=== PATIENT | female | born 1965 | race Caucasian/White ===

== ENCOUNTER → 2018-06-04 13:25 | Outpatient (REF) | payer MEDICAID, SELFPAY ==
[2018-06-07 15:25] LABS: Chlamydia Result Negative; GC Result Negative; Specimen Description CERVIX
== END ==
LOC: LBN 13:25
PROVIDERS: PCP Nurse Practitioner Family; Visit Provider Nurse Practitioner Women's Health
DX: Z11.3 Encounter for screening for infections with a predominantly sexual mode of transmission (principal)
CPT/HCPCS: 87491; 87591

== ENCOUNTER → 2018-06-15 01:30 | Outpatient (CLI) | payer MEDICAID, SELFPAY ==
--- NOTE | 2018-06-15 09:03 | DI.REPORT_ITS ---
SYMPTOMS/DIAGNOSIS: LT BREAST MASS, N63.20, NIPPLE DISCHARGE, N64.52, PAIN, N64.4, LUMPECTOMY LT, 1 CM MASS AT LT EDGE OF SCAR MAMMOGRAM AND LEFT BREAST ULTRASOUND: Mammograms were interpreted according to the usual protocol including computer analysis with CAD system, tomosynthesis and C view imaging. Comparison with prior examinations. Breast density B. Since the prior examination the patient is status post left lumpectomy in the upper outer quadrant. No suspicious microcalcifications or masses are seen in the breasts. The skin and axilla are unremarkable. A left breast ultrasound was performed in the area of palpable concern. The area corresponds to the lumpectomy site in the upper outer quadrant. No definite discrete mass is seen sonographically. IMPRESSION: No definite evidence for malignancy. A follow up left mammogram and ultrasound are requested in 6 months for re-evaluation. Category 3. The findings were discussed with the patient on the date of the examination. MQSA ASSESSMENT OF FINDINGS: Probably benign. Six month follow-up recommended. Category 3. Patient will receive a letter notifying them of these results. BI-RADS category B. There are scattered areas of fibroglandular density.
== END ==
PROVIDERS: PCP Nurse Practitioner Family; Visit Provider Nurse Practitioner Women's Health
DX: N63.20 Unspecified lump in the left breast, unspecified quadrant (principal); N64.4 Mastodynia; N64.52 Nipple discharge; N64.59 Other signs and symptoms in breast
CPT/HCPCS: 76642; 77062; 77066; G0279

== ENCOUNTER 2018-10-07 12:49 | Outpatient (REF) | payer MEDICAID, SELFPAY ==
[2018-10-11 16:26] LABS: Chlamydia Result Negative; GC Result Negative; Specimen Description CERVIX
== END 2018-10-07 13:09 ==
LOC: NCHCN 12:49
PROVIDERS: PCP Nurse Practitioner; Visit Provider Nurse Practitioner
DX: N39.0 Urinary tract infection, site not specified (principal); Z11.3 Encounter for screening for infections with a predominantly sexual mode of transmission
CPT/HCPCS: 87077; 87491; 87591; 87086; 87186; 87480; 87510; 87660

== ENCOUNTER 2019-01-22 11:04 | Emergency (ER) | payer MEDICAID, SELFPAY ==
[2019-01-22 11:17] VITALS: BP 172/93; PULSE 109; RESP 18; TEMP 36.5; O2SAT 98
--- NOTE | 2019-01-22 11:40 | ED.GENADUL_ITS ---
Discharge Plan Disposition Patient Disposition: AGAINST MEDICAL ADVICE Condition: Fair Discharge Details Chief Complaint: Urinary Clinical Impression: Exposure to STD, Urinary frequency, Bacterial vaginosis, Tachycardia Primary Care Provider: Brandi Kendrick ED Provider: Sinai Patterson Home Meds and New Rx's Prescriptions: New sulfamethoxazole-trimethoprim [Bactrim DS] 800-160 mg tablet 1 tab PO BID 3 Days Qty: 6 RF: 0 metronidazole [Flagyl] 500 mg tablet 500 mg PO BID 7 Days Qty: 14 RF: 0 Continued ranitidine HCl 75 mg tablet 75 mg PO BID Qty: 60 RF: 3 prazosin 2 mg capsule 2 mg PO TID Qty: 90 RF: 3 prazosin 5 mg capsule 5 mg PO .COMPLEX Qty: 30 RF: 3 quetiapine [Seroquel] 100 mg tablet 100 mg PO 2-3@HS Qty: 90 RF: 5 tramadol 50 mg tablet 50 mg PO 2-3x/d Qty: 30 RF: 0 nicotine (polacrilex) [Nicorette] 2 mg gum 2 mg BC Q2H Qty: 20 RF: 1 epinephrine 0.3 MG/0.3 ML auto-injector 0.3 mg IM ONCE Qty: 1 RF: 1 probiotic,multi vit DAILY RF: 0 estradiol [Vagifem] 10 MCG tablet 10 mcg VG PV HS twice weekly Qty: 24 RF: 4 calcium carbonate 600 MG tablet 600 mg PO BID RF: 0 cholecalciferol (vitamin D3) [Vitamin D3] 400 UNIT capsule 800 unit PO DAILY RF: 0 aspirin [Aspir-81] 81 MG tablet,delayed release (DR/EC) 2 tab PO PRN PRNRF: 0 Spiriva with HandiHaler 18 mcg Capsule, W/Inhalation Device 1 cap INHALATION DAILY RF: 0 Zyrtec 10 mg Capsule 10 mg PO 5XW RF: 0 Discharge Instructions Instructions: Sexually Transmitted Diseases (ED), Urinary Tract Infection in Women (ED) Additional Instructions: Call your primary care doctor on Thursday to schedule follow-up appointment for reevaluation. If your symptoms of urinary frequency do not improve, you may start the antibiotics. Return immediately to the emergency department with any worsening or new concerning symptoms. Discharge Data Discharge Date/Time-TO BE ENTERED AT DEPARTURE: 01/22/19 12:56 Discharge Physician: Sinai Patterson Medical Decision Making 53-year-old female w/ urinary frequency and vaginal itching x 3 days. Recent exposure with partner who tested + for chlamydia. Denies fever, vomiting, abdominal pain, vaginal discharge. BP hypertensive. Remainder of vitals within normal limits. Pt appears nontoxic. Abdomen soft and nontender. Normal external and internal vaginal exam. She has what appears to be mild within normal physiologic white vaginal discharge. She has had a history of hysterectomy. Patient requested cervical cultures rather than giving a dirty urinalysis specimen. Will also check a clean-catch urinalysis to rule out UTI. 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 Will give Bumex 2 g p.o. and gentamicin 240 mg IM. Cultures for gonorrhea chlamydia sent. We will also send a vaginal Path screen. 1210 --urinalysis significantly contaminated and unable to run microscopic exam. Patient would rather not wait and she states she cannot give another sample at this time. We will send home with a prescription for Bactrim if her symptoms of urinary frequency do not improve. 1300 --just prior to patient discharge, she vomited once and her heart rate increased to 140s. She denied any throat swelling or itching or difficulty breathing. Lungs clear to auscultation. She states she had not eaten anything yet today and she is very anxious about being in the emergency department and that is the cause of her tachycardia. She was watched for another 30 minutes and was given a sandwich but her HR is still 140s and she is requesting to leave. Her blood pressure was hypertensive. Her oxygen saturation was 99% on room air. Discussed with patient that due to her history of multiple drug allergies, would recommend to observe her longer to ensure her heart rate improves in case of a serious allergic reaction but she is declining to stay any further. The risks of and disability due to anaphylaxis or another acute serious pathology were explained to patient and she fully understands. AMA form signed. Patient demonstrates capacity to make decisions. Vaginal Pap screen positive for Gardnerella. She was also given a prescription for Flagyl. She is instructed to follow-up with the primary care doctor and return here at any time if worse. Medical Records Medical records reviewed: Yes I reviewed the patient's medical records. Lab Data Lab results reviewed: Yes I reviewed the patient's lab results. 01/22/19 11:40 Vaginal Vaginitis Screen - Pending Laboratory Tests Range/Units 01/22/19 11:35 Urine Color (Yellow) Yellow Urine Clarity Cloudy Urine pH (5-8) 5.5 Ur Specific [place] (1.005-1.025) >= 1.030 H Urine Protein (Negative) mg/dL 30 H Urine Ketones (Negative) mg/dL Trace H Urine Blood (Negative) Negative Urine Nitrite (Negative) Negative Urine Bilirubin (Negative) Small H Urine Urobilinogen (Up TO 0.2) EU/dL 0.2 Ur Leukocyte Esterase (Negative) Negative Urine RBC Not Applicable Urine WBC Not Applicable Ur Epithelial Cells Not Applicable Urine Crystals Not Applicable Urine Bacteria Not Applicable Urine Mucus Not Applicable Ur Culture Indicated? No/sq. contamination Urine Glucose (Negative) mg/dL Negative HPI General Mode of arrival: ambulatory . Date/Time Provider Initiated Documentation: 01/22/19 11:22 . Limitations to Documentation: no limitations . Information obtained by: patient . HPI Narrative: Patient is a 53-year-old female who presents the ED with complaint of urinary frequency and vaginal itching for the past 3 days. She states she recently had unprotected intercourse with her partner 3 months 3 days ago. She states he called her this morning to inform her that he recently tested positive for chlamydia. She denies any fever, nausea, vomiting, vaginal discharge, dysuria, hematuria, urinary urgency, abdominal pain or genital lesions. Related Data Home Medications Medication Instructions Recorded Confirmed epinephrine 0.3 mg IM ONCE #1 ea 09/19/16 01/22/19 Probiotic,Multi Vit DAILY 07/08/17 08/04/18 aspirin [Aspir-81] 2 tab PO PRN PRN 08/03/17 01/22/19 estradiol [Vagifem] 10 mcg VG PV HS twice weekly #24 02/02/18 01/22/19 tab calcium carbonate 600 mg PO BID 06/04/18 01/22/19 cholecalciferol (vitamin D3) 800 unit PO DAILY 06/04/18 01/22/19 [Vitamin D3] nicotine (polacrilex) 2 mg gum 2 mg BC Q2H #20 each 08/13/18 01/22/19 ranitidine 75 mg tablet 75 mg PO BID #60 tab-cap 09/13/18 01/22/19 prazosin 2 mg capsule 2 mg PO TID #90 tab-cap 11/08/18 01/22/19 prazosin 5 mg capsule 5 mg PO .COMPLEX #30 cap 11/08/18 01/22/19 quetiapine 100 mg tablet 100 mg PO 2-3@HS #90 tab 11/08/18 01/22/19 tramadol 50 mg tablet 50 mg PO 2-3x/d #30 tab-cap 11/24/18 01/22/19 Spiriva with HandiHaler 1 cap INHALATION DAILY 01/22/19 01/22/19 Zyrtec 10 mg PO 5XW 01/22/19 01/22/19 metronidazole [Flagyl] 500 mg PO BID 7 Days #14 tab 01/22/19 sulfamethoxazole-trimethoprim 1 tab PO BID 3 Days #6 tab 01/22/19 [Bactrim DS] Previous Rx's Medication Instructions Recorded estradiol [Vagifem] 10 mcg VG PV HS twice weekly #24 02/02/18 tab nicotine (polacrilex) 2 mg gum 2 mg BC Q2H #20 each 08/13/18 ranitidine 75 mg tablet 75 mg PO BID #60 tab-cap 09/13/18 prazosin 2 mg capsule 2 mg PO TID #90 tab-cap 11/08/18 prazosin 5 mg capsule 5 mg PO .COMPLEX #30 cap 11/08/18 quetiapine 100 mg tablet 100 mg PO 2-3@HS #90 tab 11/08/18 tramadol 50 mg tablet 50 mg PO 2-3x/d #30 tab-cap 11/24/18 metronidazole [Flagyl] 500 mg PO BID 7 Days #14 tab 01/22/19 sulfamethoxazole-trimethoprim 1 tab PO BID 3 Days #6 tab 01/22/19 [Bactrim DS] Allergies Allergy/AdvReac Type Severity Reaction Status Date / Time venom-wasp Allergy Intermediate THROAT Unverified 01/22/19 11:22 SWELLING Penicillins Allergy Unknown Anaphylaxsi Unverified 01/22/19 11:22 s codeine AdvReac Intermediate VOMITING Unverified 01/22/19 11:22 lisinopril AdvReac Intermediate COUGH Unverified 01/22/19 11:22 morphine AdvReac Intermediate vomiting Unverified 01/22/19 11:22 sertraline AdvReac Intermediate Light Unverified 01/22/19 11:22 headed, sleep disturbance, nausea YELLOW JACKET VENOM Allergy Severe ANAPHYLAXIS Uncoded 01/22/19 11:22 General Stated Complaint: Urinary MARLENE: 4 Review of Systems Review of Systems All systems reviewed & are unremarkable except as noted in HPI and below Constitutional Reports as per HPI, Denies chills and Denies fever(s) Eyes Denies blurry vision ENT Denies dizziness, Denies sore throat and Denies throat swelling Cardiovascular Denies chest pain and Denies dyspnea Respiratory Denies cough and Denies dyspnea Gastrointestinal Denies abdominal pain, Denies diarrhea and Denies vomiting Genitourinary Denies hematuria, Reports urinary frequency, Denies dysuria, Denies pelvic pain, Denies flank pain, Denies urinary hesitancy, Denies urinary urgency, Denies vag inal discharge and Reports vaginal pruritus Musculoskeletal Denies back pain and Denies numbness Integumentary/Breasts Denies lesions and Denies rash Neurologic Denies dizziness, Denies focal weakness and Denies numbness Allergic/Immunologic Denies throat swelling [facility] Medical History Anxiety Depression Perimenopausal vasomotor symptoms Tobacco use Surgical History Biopsy of breast (12/01/17) Bladder Surgery section Cholecystectomy (~1998) Hysterectomy, Laproscopic (~2009) Ligation of fallopian tube Family History Mother Substance abuse Essential hypertension Depression Stroke Father Essential hypertension Neoplasm Parkinson's disease Brother No problems noted. Grandfather No problems noted. Grandfather Essential hypertension Heart disease Stroke Grandmother Essential hypertension Neoplasm Grandmother No problems noted. Sister No problems noted. Son No problems noted. Daughter No problems noted. Daughter No problems noted. Social History Smoking/Tobacco Use Status: Current every day Tobacco Type: cigarettes Smoking cigarettes per day: 10 Alcohol Intake: current Alcohol Intake frequency: a few times a week Drug use: Occasionally Substance use type: marijuana Do you feel safe at home: Yes Do you feel safe in your relationship?: Yes Exam Const General: cooperative, healthy appearing and no acute distress HENMT Head: normal to inspection Face and sinus: normal facial exam Eyes General: appearance normal, both eyes and all related structures EOM: EOM intact bilaterally Neck Neck: normal visual inspection and No submandibular swelling Lymphatic: no lymphadenopathy noted Chest Chest: normal inspection of the chest and no tenderness Resp Effort & Inspection: normal respiratory effort and able to speak in complete sentences Auscultation: clear to auscultation bilaterally Cardio Rate: regular rate Rhythm: regular rhythm GI Inspection: normal to inspection Palpation: soft, not firm, not rigid and nontender Auscultation: normal bowel sounds External Female Exam: external appearance normal, no tenderness externally, no external swelling and no lesions Speculum Exam - Vagina: normal appearance of the vagina, normal vaginal discharge (thin, white), not erythematous, no swelling and nontender Bimanual Exam- Vagina & Uterus: normal bimanual exam, normal vaginal palpation and uterus absent Skin General skin exam: no rashes or lesions noted Neuro General: alert, awake and oriented x3 Cognition: normal cognition Speech: speech normal Motor: muscle tone normal throughout Sensory Exam: no sensory deficits noted Extrem General: normal to inspection, full ROM and no edema Psych Appearance: grossly normal Mental Status: mental status grossly normal Speech and Movement: speech and movement normal Affect: normal affect Course Vital Signs Temperature 97.7 F 01/22/19 11:17 Pulse 109 H 01/22/19 11:17 Respiratory Rate 18 01/22/19 11:17 Blood Pressure 172/93 H 01/22/19 11:17 Pulse Oximetry 98 01/22/19 11:17 Temperature 97.7 F 01/22/19 11:17 Temperature Source Temporal Artery Scan 01/22/19 11:17 Pulse 109 H 01/22/19 11:17 Respiratory Rate 18 01/22/19 11:17 Respiratory Effort Non-Labored 01/22/19 11:20 Blood Pressure 172/93 H 01/22/19 11:17 Blood Pressure Position Sitting 01/22/19 11:17 Pulse Oximetry 98 01/22/19 11:17 Oxygen Delivery Method Room Air 01/22/19 11:17 Oxygen Flow Rate 0 01/22/19 11:17 Pain Level 0 01/22/19 11:22
[2019-01-22 11:50] LABS: Bilirubin Small (Negative); Blood Negative (Negative); Clarity Cloudy; Glucose Negative (Negative); Ketones Trace mg/dL (Negative); Leukocyte Esterase Negative (Negative); Nitrite Negative (Negative); Specific Gravity >= 1.030 (1.005-1.025); Urobilinogen 0.2 EU/dL (Up TO 0.2); pH 5.5 (5-8)
[2019-01-22] MEDS: Azithromycin 250 MG TAB 2000 MG PO (11:50)
[2019-01-22] MEDS: Gentamicin 80 MG/2 ML VIAL 240 MG IM (11:59)
[2019-01-22 12:04] LABS: C & S Indicated? No/Sq. Contamination
--- NOTE | 2019-01-22 12:27 | NUR.NOTE ---
Nursing Note: 1220---vomited--states is hungry--did already have crackers after pills--denies itching/weakness/lungs clear--bp 188/108--pulse 136-144--sao2 98%--Dr Patterson notified and examed pt--lunch ordered.
[2019-01-22 12:29] VITALS: BP 188/108; PULSE 144; RESP 18; O2SAT 98
[2019-01-22 12:45] VITALS: BP 161/100; PULSE 133; RESP 18; TEMP 36.8; O2SAT 99
[2019-01-22 12:56] VITALS: BP 161/100; PULSE 133; RESP 18; TEMP 36.8; O2SAT 99
--- NOTE | 2019-01-24 10:04 | PDOC.ERCMPRO ---
Care Management Progress Note 01/24-Rhonda was seen in the ED on 01/22. She left AMA. Refused to stay longer for observation due to allergies. This CM called Rhonda and left a voice message for her to call if she needs assistance.
[2019-01-24 14:04] LABS: Chlamydia Result Negative; GC Result Negative
== END 2019-01-22 12:56 | disposition left against medical advice (07) ==
PROVIDERS: Emergency Provider Physician Assistant; PCP Nurse Practitioner Family
DX: R35.0 Frequency of micturition (principal); N76.0 Acute vaginitis; R00.0 Tachycardia, unspecified; Z20.2 Contact with and (suspected) exposure to infections with a predominantly sexual mode of transmission
CPT/HCPCS: 87491; 87591; 96372; 99284; 81003; 81015; 87480; 87510; 87660; J1580

== ENCOUNTER 2020-06-03 10:50 | Emergency (ER) | payer MEDICARE, MEDICAID, SELFPAY ==
[2020-06-03] VITALS (19 sets, daily range): BP systolic 142–168; BP diastolic 84–100; PULSE 74–98; RESP 11–22; TEMP 37; O2SAT 94–99
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
[2020-06-03] MEDS: methylPREDNISolone SUCC 125 MG VIAL IVP (11:13)
[2020-06-03] MEDS: LORazepam 2 MG/ML VIAL 0.5 MG IVP (11:13)
[2020-06-03] MEDS: FAMOTIDINE 20 MG/50 ML BAG 200 MG IVPB (11:15)
[2020-06-03] MEDS: Normal Saline 1,000 ML 150 ML IV (11:21)
[2020-06-03] MEDS: Normal Saline Flush 10 ML SYR IVP (11:22)
== END 2020-06-03 12:33 | disposition home or self-care (01) ==
PROVIDERS: Emergency Provider Physician Assistant; PCP Internal Medicine
DX: T63.451A Toxic effect of venom of hornets, accidental (unintentional), initial encounter (principal); F41.9 Anxiety disorder, unspecified; R09.89 Other specified symptoms and signs involving the circulatory and respiratory systems; Z91.030 Bee allergy status
CPT/HCPCS: 96361; 96374; 96375; 99284; J2060; J2930

== ENCOUNTER 2020-08-24 02:11 | Outpatient (CLI) | payer MEDICARE, MEDICAID, SELFPAY ==
[2020-08-24 08:59] LABS: Anion Gap 10.5 mmol/L (3-11); BUN 7 mg/dL (7-18); CO2 25.5 mmol/L (21.0-32.0); CREATININE 0.63 mg/dL (0.55-1.02); Calcium 8.9 mg/dL (8.5-10.1); Calculated LDL 109 mg/dL (<100); Chloride 100 mmol/L (98-107); Cholesterol 231 mg/dL (<200); Glucose 106 mg/dL (74-106); HDL Cholesterol 108 mg/dL (40-60); Potassium 3.6 mmol/L (3.5-5.1); Sodium 136 mmol/L (136-145); Triglyceride 70 mg/dL (<150)
== END 2020-08-24 02:31 ==
PROVIDERS: PCP Internal Medicine; Visit Provider Internal Medicine
DX: I10 Essential (primary) hypertension (principal)
CPT/HCPCS: 36415; 80048; 80061

== ENCOUNTER 2020-08-27 15:28 | Outpatient (REF) | payer MEDICARE, MEDICAID, SELFPAY ==
[2020-08-29 03:28] LABS: Chlamydia amplified RNA Negative (Negative); N gonorrhoeae amplified RNA Negative (Negative); Source VAGINAL
== END 2020-08-27 15:48 ==
LOC: LBN 15:28
PROVIDERS: PCP Internal Medicine; Visit Provider Nurse Practitioner Women's Health
DX: Z11.3 Encounter for screening for infections with a predominantly sexual mode of transmission (principal)
CPT/HCPCS: 87491; 87591

== ENCOUNTER 2021-02-14 01:53 | Outpatient (CLI) | payer MEDICARE, MEDICAID, SELFPAY ==
[2021-02-15 14:02] LABS: COVID-19 RT-PCR UVMMC Result Negative (Negative)
== END 2021-02-14 01:54 | disposition home or self-care (01) ==
LOC: LBO 01:53
PROVIDERS: PCP Internal Medicine; Visit Provider Internal Medicine
DX: Z20.822 Contact with and (suspected) exposure to COVID-19 (principal)
CPT/HCPCS: U0003; U0005

== ENCOUNTER 2021-03-13 19:45 | Outpatient (REF) | payer MEDICARE, MEDICAID, SELFPAY ==
[2021-03-14 14:37] LABS: Chlamydia Result Negative (Negative); GC Result Negative (Negative)
== END 2021-03-13 19:46 | disposition home or self-care (01) ==
LOC: LBN 19:45
PROVIDERS: PCP Internal Medicine; Visit Provider Nurse Practitioner Women's Health
DX: Z11.3 Encounter for screening for infections with a predominantly sexual mode of transmission (principal)
CPT/HCPCS: 87491; 87591

== ENCOUNTER 2021-04-02 02:40 | Outpatient (CLI) | payer MEDICARE, MEDICAID, SELFPAY ==
[2021-04-02 13:57] LABS: ALT 58 U/L (14-59); AST 80 U/L (15-37); Albumin 3.3 g/dL (3.4-5.0); Alkaline Phosphatase 184 U/L (46-116); Anion Gap 9.4 mmol/L (3-11); BUN 6 mg/dL (7-18); Bilirubin, Total 0.5 mg/dL (0.2-1.0); CO2 26.6 mmol/L (21.0-32.0); CREATININE 0.6 mg/dL (0.55-1.02); Calcium 9.3 mg/dL (8.5-10.1); Calculated LDL 92 mg/dL (<100); Chloride 101 mmol/L (98-107); Cholesterol 214 mg/dL (<200); Glucose 137 mg/dL (74-106); HDL Cholesterol 106 mg/dL (40-60); Potassium 3.7 mmol/L (3.5-5.1); Sodium 137 mmol/L (136-145); Total Protein 7.1 g/dL (6.4-8.2); Triglyceride 83 mg/dL (<150)
[2021-04-03 09:45] LABS: HIV-1/2 Ag & Ab Screen Negative (Negative)
[2021-04-03 10:08] LABS: Hepatitis C Ab w Rflx HCV PCR Negative (Negative)
[2021-04-04 12:09] LABS: Syphilis Total Ab w/Reflex Nonreactive (Nonreactive)
== END 2021-04-02 02:41 | disposition home or self-care (01) ==
LOC: LBO 02:41
PROVIDERS: PCP Internal Medicine; Visit Provider Nurse Practitioner Women's Health
DX: I10 Essential (primary) hypertension (principal); Z11.3 Encounter for screening for infections with a predominantly sexual mode of transmission; Z11.4 Encounter for screening for human immunodeficiency virus [HIV]; Z11.59 Encounter for screening for other viral diseases
CPT/HCPCS: 36415; 80053; 80061; 86803; 87389; 86780

== ENCOUNTER → 2021-06-13 13:54 | Outpatient (BNVA) | payer MEDICARE, MEDICAID, SELFPAY | PROVIDERS: PCP Internal Medicine; Referring Provider Internal Medicine; Visit Provider Physical Therapy Assistant | DX: Z12.11 Encounter for screening for malignant neoplasm of colon (principal); Z80.0 Family history of malignant neoplasm of digestive organs; I10 Essential (primary) hypertension; J44.9 Chronic obstructive pulmonary disease, unspecified ==

== ENCOUNTER 2021-08-12 02:21 | Outpatient (CLI) | payer MEDICARE, MEDICAID, SELFPAY ==
[2021-08-12 11:30] LABS: Source Nasal/Nares
[2021-08-12 21:16] LABS: COVID-19 PCR Negative (Negative)
== END 2021-08-12 02:22 | disposition home or self-care (01) ==
LOC: LBO 02:22
PROVIDERS: PCP Internal Medicine; Visit Provider Surgery
DX: Z20.822 Contact with and (suspected) exposure to COVID-19 (principal); Z01.818 Encounter for other preprocedural examination
CPT/HCPCS: 87635

== ENCOUNTER 2021-08-14 12:01 | Day surgery (SDC) | payer MEDICARE, MEDICAID, SELFPAY ==
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
--- NOTE | 2021-08-14 06:54 | W.COLOREPORT ---
Colonoscopy Report Date of procedure: 08/14/21 Pre-op diagnosis general: Colon Cancer screening Post-op diagnosis procedure note: other (polyps) Procedure: Colonoscopy with polypectomy Surgeon: Dot Pepe Anesthesia Type: General:No Airway (Guilherme Lewis CRNA) Estimated blood loss (mL): 3 Pathology: other (Transverse polyp and sigmoid polyp) Complications: None Disposition: same day Indications: The patient is here for Colonoscopy pre-op. She has a family history of colon cancer in her paternal grandmother. She has not had any bowel habit changes. -Discussed colonoscopy bowel prep as well as the procedure. Discussed possible complications of the procedure to include bleeding, pain, perforation, missed small lesion/polyp, sore throat, aspiration and adverse reaction to the medications. Questions were answered to patient?s satisfaction. No guarantees were implied or given. Prep: Miralax/Dulcolax Procedure Start Time: 13:31 Procedure End Time: 14:01 Retraction Time: 18 minutes Findings: 2 polyps <10 mm Procedure Description: After informed consent was obtained the patient was taken to the procedure room and placed in a left decubitous position. Monitors were applied and a time out was done. The patients name, date of , procedure, allergies to medications and metal in their body was reviewed. The patient was then sedated. Once sedated and comfortable a rectal exam was done. External exam was normal. Internal exam revealed a normal sphincter tone and no palpable masses. The scope was then introduced and retro-flexed. No internal hemorrhoids, polyps or masses were identified on retro-flexion. The scope was then advanced to the cecum without difficulty. The ileocecal vlave and appendiceal orifice were identified. The prep was adequate. The scope was then slowly retracted over 18 minutes back into the rectum. Polyps were removed with cold forceps in the Transverse and sigmoid colon. There was no diverticulosis noted. The scope was removed and the patient was woken up and taken back to Same day surgery in stable condition. The patient tolerated the procedure well and there were no immediate complications. Follow up: The patient should follow up in 5 years unless they develop changes in bowel habits or other new gastrointestinal complaints.
--- NOTE | 2021-08-14 06:55 | W.PM.DSUDISC ---
Discharge Plan Disposition Patient Disposition: HOME Condition: Good Discharge Details Reason For Visit: Colonoscopy Attending Provider: Dot Pepe Primary Care Provider: Missy Bermudez Home Meds and New Rx's Prescriptions: Continued serovit adavanced form PO DAILY RF: 0 Zyrtec 10 mg capsule 10 mg PO DAILY Qty: 30 RF: 11 epinephrine 0.3 mg/0.3 mL auto-injector 0.3 mg IM ONCE Qty: 1 RF: 0 mirtazapine 15 mg tablet 15 mg PO QHS RF: 0 multivitamin with iron Tablet 1 tab PO DAILY RF: 0 estradiol [Vagifem] 10 mcg tablet 10 mcg vaginal .COMPLEX Qty: 30 RF: 4 prazosin 2 mg capsule 2 mg PO TID Qty: 90 RF: 3 blister pack Not Applicable UNKNOWN RF: 0 atenolol 25 mg tablet 25 mg PO DAILY Qty: 30 RF: 11 omeprazole 20 mg capsule,delayed release(DR/EC) 20 mg PO DAILY Qty: 30 RF: 11 Advair HFA 115-21 mcg/actuation HFA aerosol inhaler 2 puff inhalation BID Qty: 3 RF: 3 dextroamphetamine-amphetamine 10 mg tablet 10 mg PO BID RF: 0 Discontinued bisacodyl [Dulcolax (bisacodyl)] 5 mg tablet,delayed release (DR/EC) 5 mg PO ONCE Qty: 4 RF: 0 polyethylene glycol 3350 17 gram/dose powder 238 g PO ONCE Qty: 238 RF: 0 Discharge Instructions Instructions: Colorectal Polyps (DC) Additional Instructions: Findings: 2 polyps Follow up: 5 years Please call if you develop: fevers >101.5 Nausea or Vomiting Abdominal pain that is not transient Rectal bleeding that is more then a tbsp A hard abdomen and inability to pass gas DAY SURGERY UNIT POST ENDOSCOPY INSTRUCTIONS Instructions for everyone who is given Anesthesia: For your safety, please do the following for the next 24 Hours: a. Do not drive or operate dangerous equipment b. Do not drink alcohol beverages or use any recreational drugs for the first 24 hours or while taking pain medications. The medications in your body may have a reaction that can be dangerous. c. Do not make any important decisions or sign any important papers 1. Generally there are no restrictions on your activity after a day or so has gone by, but you may feel a bit fatigued for a few days. 2. After you arrive home you may have a light meal and return to a normal diet as you can tolerate it without feeling sick to your stomach. 3. After surgery, you may feel pain or discomfort. This should be only transient, but if it persists please contact your doctor. 4. If there are any questions regarding the findings of your procedure, please feel free to contact your doctor. 6. If you are unable to contact your doctor with a problem, contact the hospital at [phone]. 7. Continue all your regular medications unless directed otherwise. I understand the above instructions and have no questions. Signature of Patient or Responsible Adult Escort Date/Time Name of Responsible Adult Escort Signature of Nurse Date/Time Activity:: Activity as Tolerated Diet:: As Tolerated Discharge Orders Discharge Orders: Discharge Order (Routine); Ordered 08/14/21 Ordered By: Dot Pepe DS: Diagnosis Discharge Diagnosis (1) Encounter for colorectal cancer screening: Status: Acute
[2021-08-14 12:20] VITALS: BP 124/93; PULSE 73; RESP 20; TEMP 36.3; O2SAT 98
[2021-08-14] MEDS: Lactated Ringers 1,000 ML 80 ML IV (12:46)
[2021-08-14 13:03] VITALS: BMI 22.3
--- NOTE | 2021-08-14 13:48 | BOWEL_PTH ---
PATIENT: Rhonda Rai LOC: [facility] U#:[id number] AGE/SX: 56/F ROOM: RE08/14/[address]: Dot Pepe MD : 1965 BED: DIS: 08/14/2021 SPEC #: [id number] RECD: 08/14/21 18:45 STATUS: ARIELLA REQ #: [id number] MARTINA: 08/14/21 13:[address]: Dot Pepe DEPT: Surgical Specimen RECD BY: Marita Diaz ENTERED: 08/14/21 18:46 SP TYPE: Bowel OTHR DR: Missy Bermudez MD Tissues: 1 - BIOPSY BOWEL 2 - BIOPSY BOWEL Procedures: GROSS AND MICRO LEVEL 4 Comments: [id number]
[2021-08-14 14:10] VITALS: BP 104/82; PULSE 80; RESP 18; TEMP 36; O2SAT 100
--- NOTE | 2021-08-14 14:24 | W.ANESPOSTOP ---
Postoperative Evaluation Date, Time and Location Date Performed: 08/14/21 Time Performed: 14:24 Patient Location: Day Surgery Unit Vital Signs Most Recent Imported Vital Signs: Most Recent Vital Signs Temp Pulse Resp BP Pulse Ox 36.0 C L 80 18 104/82 100 08/14/21 14:10 08/14/21 14:10 08/14/21 14:10 08/14/21 14:10 08/14/21 14:10 Pain Score Most Recent Pain Score: Most Recent Pain Score Pain Level 0 08/14/21 14:10 Assessment Mental Status: Awake (Alert & Oriented to Patient Baseline) Airway and Respiratory Function: Patent airway with normal (patient baseline) respiratory exam Cardiovascular Function: Hemodynamically Stable Hydration Status: Adequately Hydrated Nausea & Vomiting: No Nausea or Vomiting Pain: Pt. Denies Any Pain Peripheral Nerve Block: Patient did not receive a nerve block
[2021-08-14 14:44] VITALS: BP 113/90; PULSE 77; RESP 22; TEMP 36.2; O2SAT 96
== END 2021-08-14 15:05 | disposition home or self-care (01) ==
LOC: SUR 12:02
PROVIDERS: PCP Internal Medicine; Visit Provider Surgery
PROC: 0DJD8ZZ Inspection of Lower Intestinal Tract, Via Natural or Artificial Opening Endoscopic (ICD-10-PCS; CPT 45378; principal; 2021-08-14 12:15)
DX: Z12.11 Encounter for screening for malignant neoplasm of colon (principal); Z80.0 Family history of malignant neoplasm of digestive organs; J44.9 Chronic obstructive pulmonary disease, unspecified; F17.210 Nicotine dependence, cigarettes, uncomplicated; D12.3 Benign neoplasm of transverse colon
CPT/HCPCS: 45380; 88305; J2001

== ENCOUNTER → 2022-03-28 00:01 | Outpatient (CLI) | payer MEDICARE, MEDICAID, SELFPAY ==
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
== END ==
PROVIDERS: PCP Internal Medicine; Visit Provider Nurse Practitioner Women's Health

== ENCOUNTER → 2022-05-21 01:24 | Outpatient (CLI) | payer MEDICARE, MEDICAID, SELFPAY ==
--- NOTE | 2022-05-21 07:15 | DI.MAMMO_ITS ---
Exam(s) MAMMO SCREENING EXAM: MAMMO SCREENING CLINICAL HISTORY: screening, Z12.39 TECHNIQUE: Mammograms were interpreted according to the usual protocol including computer analysis w Active Scaler CAD system, tomosynthesis and C-view imaging. COMPARISON: 2016 through 2020 FINDINGS: The breasts are composed of scattered fibroglandular densities, Breast Density category B. No suspicious masses or suspicious microcalcifications are seen. No skin thickening or abnormal axillary lymph nodes are seen. Minimal post biopsy scarring left aneesh st. There has been no significant change from prior exams. IMPRESSION: BI-RADS Category 1, Negative mammogram Yearly screening mammography is recommended. Breast Density - Category B, scattered fibroglandular densities. A negative radiographic report should not delay biopsy if a dominant or clinically suspicious mass is present. Up to ten percent of cancers are not identified on mammography. A negative report may reinforce clinical impression. Adenosis and dense breasts may obscure an underlying neoplasm. False positive reports average 6 to 10%. Patient will receive a letter notifying them of these results.
== END ==
PROVIDERS: PCP Internal Medicine; Visit Provider Nurse Practitioner Women's Health
DX: Z12.31 Encounter for screening mammogram for malignant neoplasm of breast (principal)
CPT/HCPCS: 77063; 77067

== ENCOUNTER → 2022-05-21 01:26 | Outpatient (CLI) | payer MEDICARE, MEDICAID, SELFPAY ==
--- NOTE | 2022-05-21 07:15 | DI.CTLCSR_ITS ---
Exam(s) CT CHEST LUNG CANCER SCREEN EXAM: CT CHEST LUNG CANCER SCREEN CLINICAL HISTORY: Screening for lung cancer,CURRENT SMOKER,F17.210 TECHNIQUE: Imaging Protocol: Axial computed tomography images with coronal and sagittal reformatted images were created and reviewed. Low dose screening protocol. COMPARISON: CT CHEST ABD PELVIS WITH CONTRAST from 01/11/2018 CT THORACIC AND LUMBAR SP RECONS from 01/11/2018 FINDINGS: Tracheobronchial tree: No bronchiectasis or mucus plugging.. Mediastinum and Tea: No dominant adenopathy or fluid collection. Pulmonary parenchyma: No consolidation or dominant measurable mass. Mild emphysematous changes. Lung Nodules: No change circumscribed nodule right middle lobe measuring 7 x 5 x 5 millimeters. Pleura: No effusion. No pneumothorax. Heart: The heart is not dilated. No coronary artery calcifications are seen. Aorta: Thoracic aorta non-dilated. Upper abdomen: Status post cholecystectomy. Unremarkable. Bones: Unremarkable for age. Soft Tissues: Unremarkable. IMPRESSION: Stable 7 x 5 x 5 millimeter right middle lobe nodule. No new or suspicious pulmonary nodules. Lung RADS Cat 2 - Benign Appearance / Behavior: Nodules with a very low likelihood of becoming a clin ically active cancer due to size or lack of growth Lung-RADS 1.0 CATEGORIES: Category 0 - Prior chest CT exam(s) being located for comparison. Category 1 - Annual screening in 12 months. No nodules or definitely benign nodules. Category 2 - Annual screening in 12 months. Benign appearance. Nodules with low likelihood of becomin g active cancer. Category 3 - 6-month follow-up. Probably benign. Short-term follow-up suggested. Nodules with low lik elihood of becoming active cancer. Category 4A - 3-month follow-up and CT/PET if >8 mm in size. Suspicious finding. Findings which requi re additional testing. Category 4B - Findings which require additional testing and tissue sampling. Category 4X - Category 3 or 4 nodules with additional features or imaging findings that increases the suspicion of malignancy. Modifier S- Potentially clinically significant findings (non lung cancer) RADIATION DOSE DELIVERED: 79.07mGy.cm Total DLP 1.84mGy CTDIvol DATA REPOSITORY: All CT scans at this facility are submitted to the National Radiology Data Registry (NRDR) Dose Index Registry (DIR) with the [employer] (ACR). RADIATION OPTIMIZATION: All CT scans at this facility use at least one of these dose optimization te chniques: automated exposure control; mA and/or kV adjustment per patient size (includes targeted exa ms where dose is matched to clinical indication); or iterative reconstruction.
== END ==
PROVIDERS: PCP Internal Medicine; Visit Provider Internal Medicine
DX: F17.210 Nicotine dependence, cigarettes, uncomplicated (principal); Z12.2 Encounter for screening for malignant neoplasm of respiratory organs; R91.1 Solitary pulmonary nodule
CPT/HCPCS: 71271

== ENCOUNTER 2022-07-21 04:30 | Outpatient (CLI) | payer MEDICARE, MEDICAID, SELFPAY ==
[2022-07-21 08:41] LABS: ALT 27 U/L (14-59); AST 21 U/L (15-37); Albumin 3.4 g/dL (3.4-5.0); Alkaline Phosphatase 125 U/L (46-116); Anion Gap 7.8 mmol/L (3-11); BUN 12 mg/dL (7-18); Bilirubin, Total 0.3 mg/dL (0.2-1.0); CO2 29.2 mmol/L (21.0-32.0); CREATININE 0.7 mg/dL (0.55-1.02); Calcium 9.2 mg/dL (8.5-10.1); Calculated LDL 64 mg/dL (<100); Chloride 101 mmol/L (98-107); Cholesterol 185 mg/dL (<200); Estimated GFR 102.07 (mL/min/1.73m2); Glucose 128 mg/dL (74-106); HDL Cholesterol 101 mg/dL (40-60); Potassium 4.2 mmol/L (3.5-5.1); Sodium 138 mmol/L (136-145); Total Protein 7.4 g/dL (6.4-8.2); Triglyceride 103 mg/dL (<150)
== END 2022-07-21 04:31 | disposition home or self-care (01) ==
PROVIDERS: PCP Internal Medicine; Visit Provider Family Medicine
DX: I10 Essential (primary) hypertension (principal); R79.89 Other specified abnormal findings of blood chemistry
CPT/HCPCS: 36415; 80053; 80061

== ENCOUNTER 2022-08-15 09:17 | Outpatient (REF) | payer MEDICARE, MEDICAID, SELFPAY | END 2022-08-15 09:18 | disposition home or self-care (01) | LOC: LBN 09:17 | PROVIDERS: PCP Family Medicine; Visit Provider Family Medicine | DX: T21.25XA Burn of second degree of buttock, initial encounter (principal) | CPT/HCPCS: 87070 ==

== ENCOUNTER 2022-09-13 11:39 | Outpatient (CLI) | payer MEDICARE, MEDICAID, SELFPAY ==
--- NOTE | 2022-09-13 11:30 | RT.EKG_ITS ---
APPROVED REPORT Exam: Resting ECG Reason for Exam: Abdominal pain Patient Location: O HR:150 bpm ECG Measurements Heart Rate 150 AXIS RI 112 P 53 QRSd 79 QRS -3 QT 288 T 9 QTc 455 Conclusion Sinus tachycardia...rate> 99 Borderline repol abnrm, inferolateral leads...ST dep, T flat/neg, inf/lat
== END 2022-09-13 11:40 | disposition home or self-care (01) ==
LOC: DI.CM 11:39
PROVIDERS: PCP Family Medicine; Visit Provider Nurse Practitioner Family
DX: R07.9 Chest pain, unspecified (principal); R00.0 Tachycardia, unspecified
CPT/HCPCS: 93010

== ENCOUNTER 2022-09-13 12:51 | Emergency (ER) | payer MEDICARE, MEDICAID, SELFPAY ==
[2022-09-13 12:52] VITALS: BP 167/99; PULSE 98; RESP 14; TEMP 36.8; O2SAT 96
--- NOTE | 2022-09-13 13:00 | RT.EKG_ITS ---
APPROVED REPORT Exam: Resting ECG Reason for Exam: Shortness of Breath Patient Location: E HR:78 bpm ECG Measurements Heart Rate 78 AXIS IN 152 P 12 QRSd 81 QRS 20 QT 408 T 14 QTc 464 Conclusion Sinus rhythm...normal P axis, V-rate 60- 99 Left ventricular hypertrophy...multiple voltage criteria
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
--- NOTE | 2022-09-13 13:30 | DI.RAD_ITS ---
Exam(s) XR CHEST 2V PA LATERAL EXAM: XR CHEST 2V PA LATERAL CLINICAL HISTORY: chest pressure TECHNIQUE: 2D digital imaging was performed. COMPARISON: CT CT CHEST LUNG CANCER SCREEN from 05/21/2022 FINDINGS: HEART: Normal size. Aorta: PULMONARY VASCULATURE: Normal. LUNGS: Clear. PLEURAL SPACE: No pleural effusion or pneumothorax. BONE:Unremarkable for age. IMPRESSION: No acute abnormality. DATA REPOSITORY: RADIATION DOSE DELIVERED:
[2022-09-13 13:55] LABS: Abs Immature Grans 0.02 10^3/uL (0.0-0.06); Absolute Basophil Count 0.06 10^3/uL (0.0-0.2); Absolute Eosinophil Count 0.16 10^3/uL (0.0-0.7); Absolute Lymphocyte Count 1.73 10^3/uL (1.2-3.4); Absolute Monocyte Count 0.64 10^3/uL (0.1-0.8); Absolute Neutrophil Count 5.41 10^3/uL (1.2-6.7); Basophils % 0.7; HCT 42.5 % (36.0-46.0); HGB 14.4 g/dL (11.2-15.7); Immature Grans % 0.2; Lymphocytes % 21.6; MCH 31.6 pg (27.0-33.0); MCHC 33.9 % (32.0-36.0); MCV 93 fL (80-95); MPV 9.4 fL (8.0-11.0); Neutrophils % 67.5; Platelet Count 323 10^3/uL (130-400); RBC 4.55 10^6/uL (3.93-5.22); RDW 12.1 % (11.7-14.6); RDW-SD 42.2 fL; WBC 8.02 10^3/uL (4.4-10.8)
[2022-09-13 14:03] LABS: Lactate 1.3 mmol/L (0.6-1.4)
[2022-09-13] MEDS: Normal Saline 1,000 ML 1000 ML IV (14:06)
[2022-09-13] MEDS: Ondansetron 4 MG/2 ML VIAL IVP (14:06)
[2022-09-13 14:11] LABS: PTT Activated 25.2 sec (21.0-27.5); Prothrombin Time 9.8 sec (9.3-11.0)
[2022-09-13 14:14] LABS: ALT 27 U/L (14-59); AST 24 U/L (15-37); Albumin 3.5 g/dL (3.4-5.0); Alkaline Phosphatase 127 U/L (46-116); Anion Gap 6.8 mmol/L (3-11); BUN 14 mg/dL (7-18); Bilirubin, Total 0.3 mg/dL (0.2-1.0); CO2 27.2 mmol/L (21.0-32.0); CREATININE 0.8 mg/dL (0.55-1.02); Calcium 9.2 mg/dL (8.5-10.1); Chloride 100 mmol/L (98-107); Estimated GFR 86.96 (mL/min/1.73m2); Glucose 114 mg/dL (74-106); Magnesium 1.8 mg/dL (1.8-2.4); Potassium 3.6 mmol/L (3.5-5.1); Sodium 134 mmol/L (136-145); Total Protein 7.4 g/dL (6.4-8.2); Troponin I < 50 ng/L (<or=60)
[2022-09-13 14:23] LABS: Bilirubin Negative (Negative); Blood Negative (Negative); Clarity Clear (Clear); Glucose Negative (Negative); Ketones Negative (Negative); Leukocyte Esterase Trace (Negative); Nitrite Negative (Negative); Urobilinogen 0.2 EU/dL (Up TO 0.2); pH 6.5 (5-8)
[2022-09-13 14:28] LABS: D-Dimer 494 ng/mlFEU (<500)
[2022-09-13 14:32] LABS: Bacteria Few HPF (Negative); C & S Indicated? Yes; Casts Negative LPF (Negative); Crystals Negative HPF (Negative); Epithelial Cells Few HPF (Negative); Mucus Negative (Negative); RBC 0-2 HPF (0-2)
[2022-09-13 14:49] VITALS: BP 143/105; PULSE 78; PULSE 81; RESP 13; O2SAT 95
--- NOTE | 2022-09-13 14:49 | DI.VRAD_ITS ---
PROCEDURE INFORMATION: Exam: XR Chest Exam date and time: 09/13/2022 2:31 PM Age: 57 years old Clinical indication: Other: Chest pressure TECHNIQUE: Imaging protocol: Radiologic exam of the chest. Views: 2 views. COMPARISON: CT CHEST LUNG CANCER SCREEN 05/21/2022 9:12 AM FINDINGS: Lungs: Unremarkable. No consolidation. Pleural spaces: Unremarkable. No pleural effusion. No pneumothorax. Heart/Mediastinum: Unremarkable. No cardiomegaly. Bones/joints: Unremarkable. IMPRESSION: No acute findings. Dictated and Authenticated by: Orquidea Saunders MD. Ordering:ELVA Connors MD
[2022-09-13 14:56] LABS: COVID-19 PCR Negative (Negative); Influenza A PCR Negative (Negative); Influenza B PCR Negative (Negative); RSV PCR Negative (Negative)
[2022-09-13 15:00] LABS: Source Nasopharynx
[2022-09-13 15:54] VITALS: RESP 15
--- NOTE | 2022-09-13 16:17 | ED.PROG_ITS ---
Date of service: 09/13/22 Time of Service: 16:17 Medical Decision Making Care assumed from provider (TRINY Rand) Please see their initial HPI, PE, and documentation. Discussed patient details and case and pending workup and disposition. Patient is hemodynamically stable, and alert and oriented. At the time of signout awaiting serial troponin. Serial troponin less than 50 within normal limits. Did discuss the results with patient who verbalized understanding. She is ready to be discharged home and is anxious to be discharged. This text was generated using [employer] system, please disregard any oddities of phrase or misspellings. Lab Data Lab results reviewed: Yes I reviewed the patient's lab results. Sign Out Yes Sign Out Sign Out Data: Sign Out Comment: Presented for abdominal pain, nausea, vomiting, diarrhea, concern for dehydration x2 weeks. Developed chest tightness over the past couple of days. Work-up negative thus far. Received IV fluid and Zofran, feeling improvement, currently eating lunch. Awaiting delta troponin. Patient would prefer to be discharged home. If delta troponin is unremarkable then likely will benefit from prescription for Zofran. Last updated by Waylon Gaines PA at 09/13/22 15:27 Discharge Plan Disposition Patient Disposition: Home Condition: Stable Discharge Details Clinical Impression: Abdominal pain Primary Care Provider: Girma Fan ED Provider: aTwny Almeida Home Meds and New Rx's Prescriptions: No Action omeprazole 20 mg capsule,delayed release(DR/EC) 20 mg PO DAILY Qty: 90 3RF omega-3 fatty acids 500 mg capsule 500 mg PO DAILY quetiapine [Seroquel] 100 mg tablet 100 - 200 mg PO QHS PRN (Reason: Night terrors) Qty: 180 3RF atenolol 25 mg tablet 25 mg PO DAILY Qty: 90 3RF Advair HFA 115-21 mcg/actuation HFA aerosol inhaler 2 puff inhalation BID Qty: 3 3RF Zyrtec 10 mg capsule 10 mg PO DAILY Qty: 30 11RF (DME) POCKET CHAMBER Spacer See Rx Instructions .Route Qty: 1 0RF Rx Instructions: As directed valacyclovir 500 mg tablet 500 mg PO BID PRN (Reason: herpes) 3 Days Qty: 6 5RF estradiol [Vagifem] 10 mcg tablet 10 mcg vaginal .COMPLEX Qty: 30 4RF Rx Instructions: 10 mcg vaginal twice weekly; epinephrine 0.3 mg/0.3 mL auto-injector 0.3 mg IM ONCE Qty: 1 0RF Rx Instructions: For severe allergic reaction albuterol sulfate 90 mcg/actuation HFA aerosol inhaler 1 puff inhalation QID PRN (Reason: shortness of breath or wheezing) Qty: 1 2RF Rx Instructions: 1-2 puffs up to 4 times a day as needed for shortness of breath prazosin 2 mg capsule 2 mg PO TID Qty: 180 3RF clindamycin HCl 300 mg Capsule 300 mg PO 2XD Discharge Instructions Instructions: Abdominal Pain (ED) Additional Instructions: Your labs are essentially within normal limits. Sodium was just a tad low, cardiac work-up within normal limits. Follow up with primary care provider in 3-5 days. Return to ED sooner if any worsening or concerns. Increase oral fluids. Referrals: Girma Fan, [Primary Care Provider] - 5 days
[2022-09-13 17:19] LABS: Troponin I < 50 ng/L (<or=60)
== END 2022-09-13 17:41 | disposition home or self-care (01) ==
PROVIDERS: Physician Assistant; Emergency Provider Registered Nurse Emergency; PCP Family Medicine
DX: R10.13 Epigastric pain (principal); J44.9 Chronic obstructive pulmonary disease, unspecified; I10 Essential (primary) hypertension; F17.210 Nicotine dependence, cigarettes, uncomplicated; Z20.822 Contact with and (suspected) exposure to COVID-19
CPT/HCPCS: 36415; 80053; 87637; 93005; 96361; 96374; 99284; 99285; 71046; 81003; 81015; 83605; 83735; 84484; 85025; 85379; 85610; 85730; 87086; 93010; J2405